=== PATIENT | female | born 1950 | race Caucasian/White ===

== ENCOUNTER 2023-09-24 22:48 | Inpatient (IN) | payer MEDICARE ==
[~2023-09-24] VITALS: Ht 165.1 cm; Wt 52.2 kg
[2023-09-24] MEDS ORDERED: ALBUTEROL FS 2.5 MG/3 ML VIAL.NEB NEB ONE (23:00)
[2023-09-24] MEDS ORDERED: IPRATROPIUM NEB FS 0.5 MG/2.5 ML AMPUL.NEB NEB ONE (23:00)
[2023-09-24] MEDS ORDERED: LORAZEPAM 1 MG TABLET PO ONE (23:00)
[2023-09-24] MEDS ORDERED: predniSONE 20 MG TABLET PO ONE (23:00)
[2023-09-24] MEDS ORDERED: LORAZEPAM 0.5 MG TABLET ONE (23:10)
[2023-09-24] MEDS ORDERED: predniSONE 20 MG TABLET ONE (23:10)
[2023-09-24] MEDS ORDERED: IPRATROPIUM NEB FS 0.5 MG/2.5 ML AMPUL.NEB ONE (23:13)
[2023-09-24] MEDS ORDERED: ALBUTEROL FS 2.5 MG/3 ML VIAL.NEB ONE ×2 (23:13→23:26)
[2023-09-24 23:20] VITALS: O2SAT 91
[2023-09-24 23:45] VITALS: O2SAT 94
[2023-09-24 23:53] LABS: BASOPHILS % (AUTO) 0.3 % (0.0-2.0); EOSINOPHILS # (AUTO) 0.3 K/uL (0.0-0.7); EOSINOPHILS % (AUTO) 2.5 % (0.0-6.0); HEMATOCRIT 30 % (33-45); HEMOGLOBIN 9.6 g/dL (11.5-14.8); LYMPHOCYTES # (AUTO) 1.2 K/uL (0.8-4.8); LYMPHOCYTES % (AUTO) 9.7 % (20.0-44.0); MEAN CORPUSCULAR HEMOGLOBIN 29 PG (26.0-33.0); MEAN CORPUSCULAR HGB CONC 32 g/dl (31.0-36.0); MEAN CORPUSCULAR VOLUME 93 fL (82-100); MONOCYTES # (AUTO) 1.2 K/uL (0.1-1.30); NEUTROPHILS % (AUTO) 78.5 % (43.0-81.0); PLATELET COUNT (AUTO) 354 K/uL (150-450); RED BLOOD CELL COUNT(AUTO) 3.27 MIL/uL (4.0-5.2); RED CELL DISTRIBUTION WIDTH 15.3 % (11.5-15.0); WHITE BLOOD COUNT (AUTO) 12.8 K/uL (4.3-11.0)
[2023-09-25] VITALS (7 sets, daily range): O2SAT 94–100
[2023-09-25 00:09] LABS: CARBON DIOXIDE 32 mmol/L (21-32); CHLORIDE 101 mmol/L (98-107); CREATININE 1.1 mg/dL (0.6-1.3); GLUCOSE 105 mg/dL (74-106); POTASSIUM 3.8 mmol/L (3.5-5.1); SODIUM SERUM 136 mmol/L (136-145); UREA NITROGEN, BLOOD 37 mg/dL (7-18)
[2023-09-25] MEDS: ALPRAZOLAM 0.5 MG TABLET PO ONE ×2 (01:00→01:22)
[2023-09-25] MEDS ORDERED: ALPRAZOLAM 0.5 MG TABLET ONE (01:21)
[2023-09-25] MEDS ORDERED: CEFTRIAXONE 1GM BAG (ER ONLY) 1 GM/50 ML PIGGYBACK IV ONE (02:00)
[2023-09-25] MEDS ORDERED: AZITHROMYCIN 500 MG in IV D5W 250 ML IV ONE (02:00)
[2023-09-25] MEDS ORDERED: CEFTRIAXONE 1 G VIAL ONE (02:10)
[2023-09-25] MEDS ORDERED: AZITHROMYCIN 500 MG VIAL ONE (02:36)
[2023-09-25] MEDS ORDERED: ACETAMINOPHEN 325 MG TABLET PO PRN (03:30)
[2023-09-25] MEDS ORDERED: MAGNESIUM HYDROXIDE 30 ML UDC PO PRN (03:30)
[2023-09-25] MEDS ORDERED: IV NS 0.9% 1,000 ML IV PRN (03:30)
[2023-09-25] MEDS ORDERED: Z GUARD REMEDY 4 OZ OINT TP PRN (03:30)
[2023-09-25] MEDS ORDERED: ONDANSETRON HCL/PF 4 MG/2 ML VIAL IVP PRN (03:30)
[2023-09-25] MEDS ORDERED: ALBUTEROL FS 2.5 MG/3 ML VIAL.NEB NEB SCH (05:00)
[2023-09-25] MEDS: IPRATROPIUM NEB FS 0.5 MG/2.5 ML AMPUL.NEB NEB SCH ×3 (07:35→19:30)
[2023-09-25 08:13] LABS: BASOPHILS % (AUTO) 0.1 % (0.0-2.0); HEMATOCRIT 29 % (33-45); HEMOGLOBIN 9.1 g/dL (11.5-14.8); LYMPHOCYTES # (AUTO) 0.6 K/uL (0.8-4.8); LYMPHOCYTES % (AUTO) 5.6 % (20.0-44.0); MEAN CORPUSCULAR HEMOGLOBIN 29 PG (26.0-33.0); MEAN CORPUSCULAR HGB CONC 32 g/dl (31.0-36.0); MEAN CORPUSCULAR VOLUME 93 fL (82-100); MONOCYTES # (AUTO) 0.2 K/uL (0.1-1.30); MONOCYTES % (AUTO) 2.1 % (2.0-12.0); NEUTROPHILS # (AUTO) 10.3 K/uL (1.8-8.9); NEUTROPHILS % (AUTO) 92.2 % (43.0-81.0); PLATELET COUNT (AUTO) 309 K/uL (150-450); RED BLOOD CELL COUNT(AUTO) 3.11 MIL/uL (4.0-5.2); RED CELL DISTRIBUTION WIDTH 15.4 % (11.5-15.0); WHITE BLOOD COUNT (AUTO) 11.2 K/uL (4.3-11.0)
[2023-09-25] MEDS ORDERED: PANTOPRAZOLE 40 MG TABLET.DR PO ONE (08:21)
[2023-09-25] MEDS: PANTOPRAZOLE 40 MG TABLET.DR PO SCH (08:30)
[2023-09-25 08:32] LABS: CALCIUM, SERUM 8.6 mg/dL (8.5-10.1); MAGNESIUM 1.8 mg/dL (1.8-2.4); POTASSIUM 3.9 mmol/L (3.5-5.1)
[2023-09-25 08:40] LABS: LACTIC ACID 1.3 mmol/L (0.4-2.0)
[2023-09-25] MEDS ORDERED: ACETAMINOPHEN 325 MG TABLET ONE (09:03)
[2023-09-25] MEDS ORDERED: IPRATROPIUM NEB FS 0.5 MG/2.5 ML AMPUL.NEB ONE ×3 (09:39→19:24)
[2023-09-25] MEDS ORDERED: ALBUTEROL FS 2.5 MG/3 ML VIAL.NEB ONE ×3 (09:39→19:24)
[2023-09-25] MEDS ORDERED: methylPREDNISolone SOD SUCC 40 MG/ML VIAL ONE (10:58)
[2023-09-25] MEDS: methylPREDNISolone SOD SUCC 40 MG/ML VIAL IV SCH ×2 (11:04→17:00)
[2023-09-25] MEDS: LEVOFLOXACIN 750 MG /D5W 150ML 750 MG in PREMIX 1 EA IV SCH (11:30)
[2023-09-25] MEDS ORDERED: LORAZEPAM 1 MG TABLET PO PRN (11:30)
[2023-09-25] MEDS ORDERED: TRIA0.2585 PO (11:41)
[2023-09-25] MEDS ORDERED: ALBU90AE INH (11:41)
[2023-09-25] MEDS ORDERED: AMLO-212 PO (11:41)
[2023-09-25] MEDS ORDERED: ACEB400C PO (11:41)
[2023-09-25] MEDS ORDERED: HYDR-3972 PO (11:41)
[2023-09-25] MEDS ORDERED: FENO200C PO (11:41)
[2023-09-25] MEDS ORDERED: LOSA1TAB42 PO (11:41)
[2023-09-25] MEDS ORDERED: ATOR10TA PO (11:41)
[2023-09-25] MEDS: ALBUTEROL FS 2.5 MG/3 ML VIAL.NEB NEB SCH ×2 (13:21→19:30)
[2023-09-25] MEDS ORDERED: LORAZEPAM 0.5 MG TABLET ONE (17:36)
[2023-09-25] MEDS: LORAZEPAM 0.5 MG TABLET PO PRN (17:41)
[2023-09-26] VITALS (8 sets, daily range): O2SAT 96–100
[2023-09-26] MEDS: methylPREDNISolone SOD SUCC 40 MG/ML VIAL IV SCH ×3 (01:00→20:00)
[2023-09-26] MEDS ORDERED: ALBUTEROL FS 2.5 MG/3 ML VIAL.NEB ONE ×4 (01:03→19:34)
[2023-09-26] MEDS ORDERED: IPRATROPIUM NEB FS 0.5 MG/2.5 ML AMPUL.NEB ONE ×4 (01:03→19:34)
[2023-09-26] MEDS ORDERED: methylPREDNISolone SOD SUCC 40 MG/ML VIAL ONE ×3 (01:10→19:54)
[2023-09-26] MEDS: IPRATROPIUM NEB FS 0.5 MG/2.5 ML AMPUL.NEB NEB SCH ×4 (01:13→19:38)
[2023-09-26] MEDS: ALBUTEROL FS 2.5 MG/3 ML VIAL.NEB NEB SCH ×4 (01:13→19:38)
[2023-09-26] MEDS ORDERED: ENOXAPARIN SODIUM 40 MG/0.4 ML DISP.SYRIN SQ ONE (03:18)
[2023-09-26] MEDS: ENOXAPARIN SODIUM 40 MG/0.4 ML DISP.SYRIN SQ SCH ×2 (03:19→03:30)
[2023-09-26 09:10] LABS: HEMATOCRIT 30 % (33-45); HEMOGLOBIN 9.4 g/dL (11.5-14.8); LYMPHOCYTES # (AUTO) 0.5 K/uL (0.8-4.8); MEAN CORPUSCULAR HEMOGLOBIN 30 PG (26.0-33.0); MEAN CORPUSCULAR HGB CONC 32 g/dl (31.0-36.0); MEAN CORPUSCULAR VOLUME 93 fL (82-100); MONOCYTES # (AUTO) 0.2 K/uL (0.1-1.30); MONOCYTES % (AUTO) 1.4 % (2.0-12.0); NEUTROPHILS # (AUTO) 12.5 K/uL (1.8-8.9); NEUTROPHILS % (AUTO) 94.6 % (43.0-81.0); PLATELET COUNT (AUTO) 296 K/uL (150-450); RED BLOOD CELL COUNT(AUTO) 3.17 MIL/uL (4.0-5.2); RED CELL DISTRIBUTION WIDTH 15.2 % (11.5-15.0); WHITE BLOOD COUNT (AUTO) 13.2 K/uL (4.3-11.0)
[2023-09-26 09:26] LABS: CREATININE 1.1 mg/dL (0.6-1.3); MAGNESIUM 1.9 mg/dL (1.8-2.4); PHOSPHORUS 4.2 mg/dL (2.5-4.9); POTASSIUM 4.1 mmol/L (3.5-5.1)
[2023-09-26] MEDS ORDERED: PANTOPRAZOLE 40 MG TABLET.DR PO ONE (09:42)
[2023-09-26] MEDS: PANTOPRAZOLE 40 MG TABLET.DR PO SCH (09:48)
[2023-09-26] MEDS ORDERED: PRED50TA PO (11:01)
[2023-09-26] MEDS ORDERED: AZIT250T13 PO (11:01)
[2023-09-27] MEDS ORDERED: ALBUTEROL FS 2.5 MG/3 ML VIAL.NEB ONE ×3 (00:30→12:52)
[2023-09-27] MEDS ORDERED: IPRATROPIUM NEB FS 0.5 MG/2.5 ML AMPUL.NEB ONE ×3 (00:30→12:52)
[2023-09-27 00:31] VITALS: O2SAT 97
[2023-09-27] MEDS: ALBUTEROL FS 2.5 MG/3 ML VIAL.NEB NEB SCH ×3 (00:33→12:58)
[2023-09-27] MEDS: IPRATROPIUM NEB FS 0.5 MG/2.5 ML AMPUL.NEB NEB SCH ×3 (00:33→12:58)
[2023-09-27 00:39] VITALS: O2SAT 99
[2023-09-27] MEDS: methylPREDNISolone SOD SUCC 40 MG/ML VIAL IV SCH ×2 (01:00→08:37)
[2023-09-27] MEDS ORDERED: ENOXAPARIN SODIUM 40 MG/0.4 ML DISP.SYRIN SQ ONE (03:34)
[2023-09-27] MEDS ORDERED: methylPREDNISolone SOD SUCC 40 MG/ML VIAL ONE ×2 (03:34→08:36)
[2023-09-27] MEDS: ENOXAPARIN SODIUM 40 MG/0.4 ML DISP.SYRIN SQ SCH (03:42)
[2023-09-27] MEDS: PANTOPRAZOLE 40 MG TABLET.DR PO SCH (07:30)
[2023-09-27 07:43] VITALS: O2SAT 95
[2023-09-27 07:56] VITALS: O2SAT 98
[2023-09-27] MEDS ORDERED: PANTOPRAZOLE 40 MG TABLET.DR PO ONE (08:36)
[2023-09-27] MEDS ORDERED: LEVOFLOXACIN 750 MG /D5W 150ML 150 ML IV ONE (09:04)
[2023-09-27] MEDS: LEVOFLOXACIN 750 MG /D5W 150ML 750 MG in PREMIX 1 EA IV SCH (09:05)
[2023-09-27] MEDS: LORAZEPAM 0.5 MG TABLET PO PRN (11:30)
[2023-09-27] MEDS ORDERED: LORAZEPAM 0.5 MG TABLET ONE (11:30)
[2023-09-27 11:56] VITALS: BP 118/66; TEMP 98.2
[2023-09-27 12:58] VITALS: O2SAT 95
== END 2023-09-27 12:33 | disposition home or self-care (01) | DRG 193 ==
LOC: ER 22:52 → TRANSITION 09-25 05:37
PROVIDERS: ADMIT Internal Medicine; ATTEND Internal Medicine
DX: J15.9 Unspecified bacterial pneumonia (principal); J96.21 Acute and chronic respiratory failure with hypoxia; J44.0 Chronic obstructive pulmonary disease with (acute) lower respiratory infection; R64 Cachexia; J44.1 Chronic obstructive pulmonary disease with (acute) exacerbation; F13.20 Sedative, hypnotic or anxiolytic dependence, uncomplicated; Z68.1 Body mass index [BMI] 19.9 or less, adult; E44.0 Moderate protein-calorie malnutrition; E78.5 Hyperlipidemia, unspecified; I10 Essential (primary) hypertension; B34.9 Viral infection, unspecified; F41.9 Anxiety disorder, unspecified; D64.9 Anemia, unspecified; F17.200 Nicotine dependence, unspecified, uncomplicated; Z87.01 Personal history of pneumonia (recurrent); Z88.0 Allergy status to penicillin; Z20.822 Contact with and (suspected) exposure to COVID-19
CPT/HCPCS: 36415; 71045-TC; 80048-TC; 83605-TC; 83735-TC; 84100-TC; 84484-TC; 85025-TC; 87040-TC; 94799-TC; A4216; A4223; G0378; J0456; J0696; J1650; J1956; J2920; J7060